=== PATIENT | male | born 1990 | race Asian ===

== ENCOUNTER 2016-12-23 18:13 | Inpatient (IN) | payer BC ==
[2016-12-23] MEDS ORDERED: diphenhydrAMINE HCl 50 MG/ML 1 ML VIAL ONE (19:18)
[2016-12-23] MEDS ORDERED: Metoclopramide HCl 10 MG/2 ML VIAL ONE (19:19)
[2016-12-23 19:36] LABS: #Basophils 0.1 thou/uL (0.0-0.2); #Lymphocytes 1.5 thou/uL (1.20-3.40); #Monocytes 0.6 thou/uL (0.11-0.59); #Neutrophils 16.4 thou/uL (1.40-6.50); %Basophils 0.3 % (0.0-1.0); %Eosinophils 0.2 % (0.0-10.0); %Lymphocytes 7.9 % (21.0-51.0); %Monocytes 3.5 % (0.0-10.0); Hematocrit 51.8 % (42.0-52.0); Mean Platelet Volume 6.1 fL (7.4-10.4); Red Blood Cell (RBC) Count 5.62 mill/uL (4.70-6.10); White Blood Cell (WBC) Count 18.6 thou/uL (4.8-10.8)
[2016-12-23 19:42] LABS: Bilirubin Negative (Negative); Blood, Urine Negative (Negative); Glucose, Urine (Dipstick) Negative (Negative); Ketone, Urine > or equal to 80 mg/dL (Negative); Nitrite Negative (Negative); Protein, Urine (Dipstick) 30 mg/dL (Neg-Trace)
[2016-12-23 19:43] LABS: Bacteria/HPF None Seen HPF (None Seen); RBC/HPF 0-3 HPF (0-3)
[2016-12-23 19:45] LABS: Amphetamine Not Detected (NotDetected); Methamphetamine Not Detected (NotDetected)
[2016-12-23 19:46] LABS: Methadone Not Detected (NotDetected)
[2016-12-23 20:00] LABS: Acetaminophen Less than 6.0 mcg/mL (10.0-30.0); Salicylate Less than 8.0 mg/dL (15.0-30.0)
[2016-12-23 20:01] LABS: Hyaline Casts/LPF 0-3 HYALINE CAST LPF (0-3 Hyaline); Renal Epithelial None Seen HPF (0-3); Squamous Epithelial 0-3 HPF (0-3); Transitional Epithelial NONE SEEN HPF (0-3)
--- NOTE | 2016-12-23 20:10 | CT ---
NONCONTRAST CT OF THE BRAIN: Indication: 26-year-old male with left sided headache, nausea and photophobia. Comparison: None. FINDINGS: No acute infarct, hemorrhage, or hydrocephalus present. The septum pellucidum and third ventricle ar e midline. The mastoid air cells are clear. Visualized paranasal sinuses are clear. The skull is int act. IMPRESSION: No acute intracranial abnormality demonstrated. POS: [facility]
[2016-12-23 20:19] LABS: ALT (SGPT) 39 U/L (8-55); AST (SGOT) 26 U/L (5-34); Alkaline Phosphatase 104 U/L (40-150); Anion Gap 19 mmol/L (10-20); BUN (Urea Nitrogen) 9 mg/dL (8.9-20.6); Bilirubin, Total 0.7 mg/dL (0.2-1.2); CK (CPK) 121 U/L (30-200); Calc. Creatinine Clearance 0 mL/min (70-130); Calcium 10.3 mg/dL (7.8-10.44); Carbon Dioxide 22 mmol/L (22-29); Chloride 103 mmol/L (98-107); Estimated GFR-MDRD Greater than 90; Protein, Total 8.7 g/dL (6.0-8.3)
[2016-12-23 20:20] LABS: Lactic Acid - Sepsis 6.1 mmol/L (0.5-2.2)
[2016-12-23 20:20] LABS: Anion Gap 15 mmol/L (-14-95); T. Carbon Dioxide 23.5 mmol/L (1.0-85.0); pH (Venous) 7.387 (7.35-7.45); vO2 Saturation-calc 81.8 % (0.0-100.0)
[2016-12-23] MEDS ORDERED: Ondansetron HCl/PF 4 MG/2 ML Vial ONE (20:22)
--- NOTE | 2016-12-23 20:23 | RAD ---
PORTABLE AP CHEST: Date: 12-23-16 History: Altered mental status. Headache. Nausea. FINDINGS: Cardiac silhouette and pulmonary vasculature are within normal limits. There is mild elevation of th e right hemidiaphragm. The lungs are clear. Osseous structures are intact. IMPRESSION: No acute cardiopulmonary process. POS: [facility]
[2016-12-23] MEDS ORDERED: Dexamethasone 4 mg/ml Vial ONE (20:28)
[2016-12-23] MEDS ORDERED: cefTRIAXone\\ROCEPHIN 2 GM VIAL ONE (20:28)
[2016-12-23 20:51] LABS: Oxyhemoglobin 97.1 % (94.0-97.0); Sodium 141 mmol/L (135-148)
[2016-12-23] MEDS ORDERED: Dexamethasone 10 MG/ML VIAL SLOW IVP SCH (21:00)
[2016-12-23 21:05] LABS: Mode NC; Modified Allen's Test POSITIVE; Vent NO
[2016-12-23] MEDS ORDERED: Ondansetron HCl/PF 4 MG/2 ML Vial IVP PRN (23:48)
[2016-12-24 00:05] VITALS: BMI 29.0
[2016-12-24] MEDS: D5 1/2 NS w/20 mEq KCL 1,000 ML IV SCH ×2 (00:11→06:31)
[2016-12-24 00:15] LABS: CSF, Glucose 64 mg/dl (40-70)
[2016-12-24] MEDS ORDERED: Acetaminophen 325 MG TAB PO PRN (00:31)
[2016-12-24] MEDS ORDERED: Ondansetron ODT 4 MG TAB PO PRN (00:31)
[2016-12-24] MEDS ORDERED: Ondansetron HCl/PF 4 MG/2 ML Vial IVP PRN (00:31)
[2016-12-24] MEDS ORDERED: Ketorolac Tromethamine 30 MG/ML VIAL IVP PRN (00:33)
--- NOTE | 2016-12-24 00:36 | PDOC.EVN ---
Event Note - Event Note Event Note: Attending H&P I personally evaluated the patient and discussed the management with Dr. Brand. I have reviewed the written H&P and it is repeated by me. I agree with the History, Examination, Assessment and Plan documented above with any addition or exceptions noted below. Dante's Cardenas is resolved. He has no physical exam findings consistent with meningitis. He seems tired, and his labs reveal an elevated WBC's and lactic acidosis. His hx does not provide a good explanation for these abnormalities. However, with fluids he is significantly improved, his lactate is improved, so it seems possible he has been more dehydrated than he realized. We are evaluating the abnormal UA. He is without complaint at this time.
[2016-12-24 02:24] LABS: #Lymphocytes 0.6 thou/uL (1.20-3.40); #Neutrophils 8.4 thou/uL (1.40-6.50); %Basophils 0.1 % (0.0-1.0); %Eosinophils 0.1 % (0.0-10.0); %Lymphocytes 6.4 % (21.0-51.0); %Monocytes 0.3 % (0.0-10.0); Hematocrit 44.6 % (42.0-52.0); Mean Platelet Volume 6.4 fL (7.4-10.4); Red Blood Cell (RBC) Count 4.87 mill/uL (4.70-6.10)
--- NOTE | 2016-12-24 02:31 | ER ---
DATE OF SERVICE: 12/23/2016 Please refer to the patient's electronic medical record for further details of his visit. In summary, the patient presents with a headache and altered mental status. He is, on my exam, somn olent but arousable. On my initial evaluation, the patient's oxygen saturation was borderline. Thi s resolved immediately with when he was awoken. He was able to answer questions appropriately, was oriented x3, reported left-sided headache which is similar headaches he has had in the past. He has no other complaints but repeatedly falls asleep as soon as I stop talking to him. Evaluation in the emergency department is concerning for altered mentation, without clear underlying etiology identified. His brain CT was unremarkable. Drug screens are normal. He has an elevated white cell count at 18.6 with a left shift, without clear underlying infectious source. Of note, martínez mbar puncture results are not consistent with meningitis or subarachnoid hemorrhage. There is no ev idence of carbon monoxide poisoning. His lactate is noted to be elevated without a concurrent activ e acidosis. The patient was covered with antibiotics for the possibility of meningitis which was pandya spected. He remained hemodynamically stable throughout his ER stay. He has no focal neurologic def icits on exam, but again, is persistently obtunded. He denies any drug use, drug screens again are negative. He is in guarded condition but stable at the time of admission to the [facility] for further ob servation. He does not have any family available for discussion.
[2016-12-24 03:03] LABS: ALT (SGPT) 30 U/L (8-55); AST (SGOT) 20 U/L (5-34); Alkaline Phosphatase 88 U/L (40-150); Anion Gap 14 mmol/L (10-20); BUN (Urea Nitrogen) 8 mg/dL (8.9-20.6); Bilirubin, Total 0.5 mg/dL (0.2-1.2); Calc. Creatinine Clearance 158 mL/min (70-130); Carbon Dioxide 25 mmol/L (22-29); Chloride 104 mmol/L (98-107); Estimated GFR-MDRD Greater than 90; Globulin 3.5 g/dL (2.4-3.5); Protein, Total 7.7 g/dL (6.0-8.3)
[2016-12-24] MEDS: Sodium Chloride 0.9% 1,000 ML IV SCH ×2 (05:59→06:05)
[2016-12-24] MEDS ORDERED: cefTRIAXone\\ROCEPHIN 2 GM in Sodium Chloride 0.9% 100 ML IVPB SCH ×4 (08:00)
[2016-12-24] MEDS ORDERED: Vancomycin HCl 1 GM in Premix Bag 1 BAG IVPB SCH ×2 (08:00→09:00)
[2016-12-24 08:09] VITALS: BP 109/55; TEMP 98.2
--- NOTE | 2016-12-24 08:35 | PDOC.FM ---
- Subjective Subjective: MYRNA overnight, VSS. GARCIA has resolved w/p reglan, toradol, and benadryl given in ER. Asking when he can go home and about cost of hospitalization. No other complaints. - Objective MAR Reviewed: Yes Vital Signs & Weight: Vital Signs (12 hours) Temp Pulse Resp BP Pulse Ox 12/24/16 07:00 98.2 F 94 16 109/55 L 97 12/24/16 04:10 99.3 F 92 18 112/50 L 98 12/24/16 00:38 99.8 F H 102 H 16 12/23/16 23:25 99.8 F H 102 H 16 117/74 100 Weight Weight 89.358 kg I&O: 12/23/16 12/24/16 12/25/16 06:59 06:59 06:59 Intake Total 853 Output Total 1700 Balance -847 Result Diagrams: 12/24/16 01:53 12/24/16 01:53 <Jm Ruffin - Last Filed: 12/24/16 08:34> - Objective Vital Signs & Weight: Vital Signs (12 hours) Temp Pulse Resp BP Pulse Ox 12/24/16 08:00 98.2 F 94 16 97 12/24/16 07:00 98.2 F 94 16 109/55 L 97 12/24/16 04:10 99.3 F 92 18 112/50 L 98 12/24/16 00:38 99.8 F H 102 H 16 12/23/16 23:25 99.8 F H 102 H 16 117/74 100 Weight Weight 89.358 kg I&O: 12/23/16 12/24/16 12/25/16 06:59 06:59 06:59 Intake Total 853 Output Total 1700 Balance -847 Result Diagrams: 12/24/16 01:53 12/24/16 01:53 <Coby Howard - Last Filed: 12/24/16 10:51> Phys Exam - Physical Examination Constitutional: NAD HEENT: PERRLA Mallampati 4 Neck: no nodes Full ROM, no meningeal signs Respiratory: no wheezing, clear to auscultation bilateral Cardiovascular: RRR, no significant murmur Gastrointestinal: soft Musculoskeletal: no edema Neurological: moves all 4 limbs Psychiatric: A&O x 3 Skin: cap refill <2 seconds <Jm Ruffin - Last Filed: 12/24/16 08:34> Dx/Plan (1) Migraine Code(s): G43.909 - MIGRAINE, UNSP, NOT INTRACTABLE, WITHOUT STATUS MIGRAINOSUS Status: Acute Plan: GARCIA resolved s/p administration of GARCIA protocol No meningeal signs and WBC back to 9 from 18 this AM which is baseline from [facility] labs findings CSF WNL, Cx pending Elevated WBC likely 2/2 decreased volume status w/ associted nausea and vomitting Will consider possible discharge w/ return percautions pending clinical condition as this is not a typical picture of meningitis and likely acute migraine (2) Elevated lactic acid level Code(s): R79.89 - OTHER SPECIFIED ABNORMAL FINDINGS OF BLOOD CHEMISTRY Status : Acute Plan: Likely 2/2 dehydration from N/V and decreased PO intake associated w/ Migraine Improving w/ IVF Will decrease IVF to matainence and monitor PO intake w/ plans to wean off later today UOP 1.5 mL/Kg/Hr since admission (3) Ketonuria Code(s): R82.4 - ACETONURIA Status: Acute Plan: Likely 2/2 decreased PO intake and nausea/vomitting causing ketogenesis to occur No signs of DKA and UDS negative for EtOH Will cont. to monitor <Jm Ruffin - Last Filed: 12/24/16 08:34> Attending Addendum - Attending Addendum I personally evaluated the patient and discussed the management with Dr. Ruffin. I agree with the History, Examination, Assessment and Plan documented above with any addition or exceptions noted below- Patient denies any complaints. GARCIA resolved. Tolerating diet. Afebrile. VSS. A/P: 1) Headache- most likely migraine - LP normal; no evidence of meningitis. D/C abx. 2) Leukocytosis- resolved; most likely due to hemoconcentration from vomiting; now back to normal. Plan to d/c home today with precautions. <Coby Howard - Last Filed: 12/24/16 10:51>
[2016-12-24] MEDS ORDERED: Sodium Chloride 0.9% 1,000 ML IV SCH (08:45)
[2016-12-24] MEDS ORDERED: FLU VACC QS2017-18 36 mo. & older 0.5 ML SYRINGE IM ONE (09:00)
--- NOTE | 2016-12-24 23:59 | DIS-2 ---
DATE OF ADMISSION: 12/23/2016 DATE OF DISCHARGE: 12/24/2016 ADMITTING ATTENDING: Dr. Loki Nixon. DISCHARGE ATTENDING: Dr. Coby Howard. RESIDENT: Jm Ruffin M.D. CONSULTATIONS: None. PROCEDURES: None. PRIMARY DIAGNOSES: 1. Acute migraine. 2. Ketonuria. 3. Lactic acidosis. SECONDARY DIAGNOSIS: None DISCHARGE MEDICATIONS: None. DISCONTINUED MEDICATIONS: None. HISTORY OF PRESENT ILLNESS AND HOSPITAL COURSE: The patient is a 26-year-old male with no significa nt past medical history who presented to the ER for evaluation of continued left frontal headache pu lsatile in nature that started earlier on the morning of 12/23/2016. The patient states he was seen at [facility] on campus where blood work was drawn and white blood cell count of 9%. Patient jonatan kenney was ER precautions to be evaluated as the headache continued and/or worsens. The patient endor ses subjective photophobia associated with headache. The patient endorses a prior episode of a jackson lar headache in his past associated with an episode of food poisoning. The patient does not normall y get migraines, but he does get headaches that he describes is bifrontal in nature with some associ ated photophobia, which he takes Tylenol for which normally relases. This headache was different in characteristics and worse than his typical headaches that he gets. Upon arrival to the ER, he was given normal headache cocktail with Toradol, IV Benadryl and Reglan. At some point during the ER vi sit, the patient became sleepy and with concerns for possible altered mental status and newly found elevated white blood cell count of 18.6 on repeat labs, LP was conducted to rule out meningitis. Th e patient was also started on acyclovir, vancomycin, and Rocephin at this time. Initial CSF studies showing 3 white blood cells, 64 glucose, 38 protein and preliminary CSF cultures showing no white b lood cells, no organisms. The patient was started on IV fluids and admitted to the floor and headac he had resolved at this point. The patient the following morning continued to endorse resolution of the headache without any symptoms. The patient with good urine output greater than 0.5 mL per kilo gram per hour. The patient did endorse this morning nausea and vomiting as well, which would accoun t for the elevated lactic acid of 6.1, which downtrended to 3.4 after IV fluid administration as wel l as the ketonuria that was found on the UA. The patient after discussion was given return precauti ons for meningitis including fever, neck stiffness and return of headache. The patient was also adv ised that he will likely have some partial headaches secondary to his LP and to expect this. The jennifer mario alberto is to follow up with [facility] by the week for further evaluation and resolution of his s ymptoms. It is possible that he may need a prophylactic triptan in the future if he begins to have more of these headaches in the future. We will contact the patient with final CSF culture once comp leted at approximately 36 hours. DISPOSITION: Stable. DISCHARGE INSTRUCTIONS: 1. Location: Home. 2. Follow up with primary care provider in 3-5 days. 3. Activity: As tolerated.
--- NOTE | 2016-12-25 06:20 | HP-2 ---
CODE STATUS: FULL. PRIMARY CARE PHYSICIAN: None. ATTENDING: Loki Nixon M.D. RESIDENT: Magda Brand DO. HISTORIAN: Patient. CHIEF COMPLAINT: Headache. HISTORY OF PRESENT ILLNESS: Patient is a 26-year-old male with no past medical history, who present ed to ED with worsening headache, photophobia, and nausea. He was treated in clinic today but decid ed to come to the ED for worsening symptoms. He was found to be obtunded and have a hypoxic event, with O2 sat down to the 70s. Improved with 2 liters of O2. The patient denies recent illness. No neck pain, headache now 2/10. Originally, the pain was located in the right yarsani associated with photophobia and vomiting x4. No recent travel, no exposure to animals. The patient does report hav ing a headache in the past like this, where he went to a doctor, he was given a shot and released ho me and has not had one since then. In the ER an LP was done, which revealed clear fluid. He was gi dominic Decadron 0.15 mg/kg, acyclovir 2mg/kg, Zofran 8 mg IV, vancomycin 1 gram, Rocephin 2 grams, meto clopramide 10 mg IV, Benadryl 25 mg IV. PAST MEDICAL HISTORY: None. PAST SURGICAL HISTORY: None. ALLERGIES: No known drug allergies. MEDICATIONS: None. FAMILY HISTORY: Noncontributory. SOCIAL HISTORY: Denies tobacco, alcohol, and drug use. REVIEW OF SYSTEMS: A 12-point review of systems was performed including general, eyes, respiratory, ENT, cardiovascular, GI, , skin, MS, neuro, and psych and were positive other than those mentione d in the HPI. PHYSICAL EXAMINATION: VITAL SIGNS: Blood pressure 132/73, pulse 96, respiratory rate 18, T-max 99.6, pulse ox 100% on 2 l iters. Current weight 81.7 kilograms. GENERAL: Alert and oriented x4, no acute distress. Well-developed, appropriately interactive. EYES: EOMI. NECK: Supple, without lymphadenopathy. No nuchal rigidity. CARDIOVASCULAR: Regular rate and rhythm. No murmurs. Radial pulses 2+. RESPIRATORY: Normal effort, no retractions. Clear to auscultation bilaterally. SKIN: Warm and dry without cyanosis. ABDOMEN: Soft, nontender. Bowel sounds positive. No mass or distention. No CVA tenderness. EXTREMITIES: No clubbing, cyanosis, or edema. MUSCULOSKELETAL: Structure within normal limits. NEUROLOGIC: No focal deficits. PSYCHIATRIC: Appropriate. LABORATORY DATA: 1. CBC: White blood cell count 18.6, hemoglobin 17.4, hematocrit 51.8, platelets 255. 2. Chemistries: Sodium 140, potassium 3.5, chloride 103, CO2 22, BUN 9, creatinine 0.95, glucose 1 06, calcium 10.3, total protein 8.7, albumin 4.7, AST 26, ALT 39, alkaline phosphatase 104, total bi lirubin 0.7. 3. Lactic acid 6.1, which trended down to 4.1. 4. Acetaminophen, alcohol, and salicylate were negative. 5. CK 121. 6. TSH 0.3466. 7. UA: Specific gravity 1.023, blood negative, protein 30, leukocyte esterase trace, nitrates nega tive, ketones greater than or equal to 80, glucose negative, red blood cells 0-3, white blood cells 4-6, bacteria none. ABG: pH 7.38, pCO2 37.9, PaO2 115.6. CSF reveals no organisms, no white blood cells, and 1-3 red blood cells present. Chest x-ray, no acute cardiopulmonary abnormalities. IMAGING: Brain CT with no acute abnormalities. ASSESSMENT AND PLAN: 1. New onset headache, likely secondary to migraine versus infectious etiology. Awaiting CSF prote in and glucose studies. We will have blood cultures and urine cultures pending. Continue antibioti cs and acyclovir for broad-spectrum coverage for meningitis. We will check HSV, as well as chlamydi a and gonorrhea. Toradol for headaches or headache pain. 2. Lactic acid, meets systemic inflammatory response syndrome criteria, unknown origin. White bloo d cell count of 18.6. Lactic acid 6.1. Blood culture, urine culture pending. Broad spectrum antib iotics. 3. Acute hypoxic event. Admit to [facility] with saturations at 100% on 2 liters now. Chest x-ray within normal limits. We will continue to monitor and wean. VBG and ABG within normal limits. 4. Proteinuria, asymptomatic, likely change due to acute illness. No hematuria. within norm al limits, repeat outpatient. 5. Ketonuria possibly due to the amount of vomiting, we will need to repeat UA after discharge. DISPOSITION AND LENGTH OF HOSPITAL STAY: 1-2 days. Symptomatic medications will be provided. History and physical exam as well as management was discussed with Dr. Loki Nixon.
== END 2016-12-24 11:19 | disposition home or self-care (01) | DRG 103 ==
LOC: ERS 18:13 → IMCU/EMU 21:27
PROVIDERS: ADMIT Family Medicine; ATTEND Family Medicine
PROC: 009U3ZX Drainage of Spinal Canal, Percutaneous Approach, Diagnostic (ICD-10-PCS; principal; 2016-12-23)
DX: G43.909 Migraine, unspecified, not intractable, without status migrainosus (principal); E87.2 Acidosis; R82.4 Acetonuria; R11.2 Nausea with vomiting, unspecified; E86.0 Dehydration; R09.02 Hypoxemia; R80.9 Proteinuria, unspecified; Z23 Encounter for immunization
CPT/HCPCS: 36415; 70450; 71010; 80053; 80306; 80307; 81003; 81015; 82330; 82550; 82803; 82805; 82945; 83605; 84157; 84439; 84443; 85025; 87040; 87070; 87086; 87205; 87252; 87491; 87591; 89051; 93005; 94760; J0133; J0696; J1100; J1200; J2405; J2765; J3370; J7050

== ENCOUNTER → 2016-12-27 | Day surgery (SDC) | payer BC ==
[~2016-12-27] MED LIST: Meclizine HCl 25 MG TAB ONE; Sodium Chloride 0.9% 10 ML ONE
[2016-12-27 09:17] LABS: #Eosinphils 0.1 thou/uL (0.0-0.7); #Lymphocytes 1.5 thou/uL (1.20-3.40); #Monocytes 0.5 thou/uL (0.11-0.59); #Neutrophils 6.7 thou/uL (1.40-6.50); %Basophils 0.4 % (0.0-1.0); %Eosinophils 0.7 % (0.0-10.0); %Monocytes 6.1 % (0.0-10.0); Hematocrit 48.9 % (42.0-52.0); Red Blood Cell (RBC) Count 5.38 mill/uL (4.70-6.10); White Blood Cell (WBC) Count 8.8 thou/uL (4.8-10.8)
[2016-12-27 09:39] LABS: ALT (SGPT) 36 U/L (8-55); AST (SGOT) 20 U/L (5-34); Alkaline Phosphatase 92 U/L (40-150); Anion Gap 14 mmol/L (10-20); BUN (Urea Nitrogen) 9 mg/dL (8.9-20.6); Bilirubin, Total 0.5 mg/dL (0.2-1.2); Calc. Creatinine Clearance 0 mL/min (70-130); Carbon Dioxide 30 mmol/L (22-29); Chloride 102 mmol/L (98-107); Estimated GFR-MDRD Greater than 90; Globulin 3.7 g/dL (2.4-3.5); Protein, Total 8.1 g/dL (6.0-8.3)
== END ==
LOC: ERS 08:39 → SDC/OP 12:12
PROVIDERS: ATTEND Anesthesiology
PROC: 3E0S3GC Introduction of Other Therapeutic Substance into Epidural Space, Percutaneous Approach (ICD-10-PCS; principal; 2016-12-27)
DX: R51 Headache (principal)
CPT/HCPCS: 80053; 85025; A4216